=== PATIENT | female | born 1995 | race Caucasian/White ===

== ENCOUNTER 2017-10-08 21:48 | Observation (INO) ==
[2017-10-08 22:15] LABS: Bilirubin,Urine Negative (Negative); Blood,Urine Negative (Negative); Clarity,Urine Turbid (Clear); Color,Urine Yellow (Yellow); Glucose,Urine (UA) Normal (Normal); Ketones,Urine Negative (Negative); Leukocyte Esterase,Urine Large (Negative); Nitrite,Urine Negative (Negative); PH,Urine 7.5 pH Units (5.0-8.0); Protein,Urine Negative (Neg-Trace); Specific Gravity,Urine 1.018 (1.010-1.025); Urobilinogen,Urine Normal (Normal)
[2017-10-08 22:17] LABS: Bacteria,Urine Moderate per hpf (None-Few); Hyaline Casts,Urine None Seen per lpf (None-Few); Squamous Epithelial Cell,Urine Many per lpf (None-Few)
[2017-10-08 22:25] LABS: Amphetamine Screen,Urine Negative ng/mL (Cutoff=1000); Barbiturate Screen,Urine Negative ng/mL (Cutoff=200); Benzodiazepines Screen,Urine Negative ng/mL (Cutoff=200); Cannabinoid Screen,Urine Negative ng/mL (Cutoff = 50); Cocaine Screen,Urine Negative ng/mL (Cutoff= 300); Opiate Screen,Urine Negative ng/mL (Cutoff=300); Phencyclidine Screen,Urine Negative ng/mL (Cutoff=25)
[2017-10-08 22:38] LABS: Amorphous Sediment,Urine Moderate (Few); RBC,Urine 0-3 per hpf (0-3); WBC,Urine 15-30 per hpf (0-3)
--- NOTE | 2017-10-08 23:00 | OB/GYN Progress Note ---
Date of Encounter: 10/09/17 Time of Encounter: 22:57 - Assessment and Plan (1) 31 weeks gestation of Current Visit: Yes Status: Acute (2) Abdominal pain during in third trimester Current Visit: Yes Status: Acute Initial cervical exam , discussed plan of care with Dr. Villela, Will recheck cervix in 2 hours if no change we will discharge home to follow up with home provider. Will not give steroids at this time. Cervical exam remains unchanged. discharged home with instructions to call provider in AM and been seen in office. UA indicates UTI, macrobid Rx given. Subjective - Subjective Interval history: 31+6 weeks gestation presents to triage for labor evaluation. Patient states approximately 2 hours ago she started to have some occasional abdominal cramping that was radiating to her back. Patient states she has never had this before. Patient reports good movement earlier in the day, but none since feeling the abdominal pain, denies vaginal bleeding or leaking of fluid. Patient receives care with Dr. Torres that [facility], unable to obtain records at this time.Pt reports no concerns during care. Antepartum ROS: contractions, no loss of fluid, no vaginal bleeding, no movement normal Objective - Vital Signs Vital Signs: Intake and Output 10/08/17 10/08/17 10/08/17 07:59 15:59 23:59 Other: Weight 72.575 kg Patient Weight 10/08/17 23:59 Weight 72.575 kg - Exam FHR: auscultation normal, category 1 FHR comments: 135 baseline Abdomen: Present: normal appearance, soft, gravid Cervical dilation: 3 - Labs Labs: Abnormal lab results Urine Clarity Turbid (Clear) A 10/08/17 22:00 Ur Leukocyte Esterase Large (Negative) H 10/08/17 22:00 Urine Microscopic WBC 15-30 per hpf (0-3) H 10/08/17 22:00 Ur Squamous Epith Cells Many per lpf (None-Few) H 10/08/17 22:00 Amorphous Sediment Moderate (Few) H 10/08/17 22:00 Urine Bacteria Moderate per hpf (None-Few) H 10/08/17 22:00
== END 2017-10-09 01:30 | disposition home or self-care (01) ==
LOC: 1NENULAB
PROVIDERS: ADMIT Obstetrics & Gynecology; ATTEND Obstetrics & Gynecology

== ENCOUNTER 2017-11-30 22:17 | Inpatient (IN) ==
[2017-11-30 21:35] LABS: Amphetamine Screen,Urine Negative ng/mL (Cutoff=1000); Barbiturate Screen,Urine Negative ng/mL (Cutoff=200); Benzodiazepines Screen,Urine Negative ng/mL (Cutoff=200); Cannabinoid Screen,Urine Negative ng/mL (Cutoff = 50); Cocaine Screen,Urine Negative ng/mL (Cutoff= 300); Opiate Screen,Urine Negative ng/mL (Cutoff=300); Phencyclidine Screen,Urine Negative ng/mL (Cutoff=25)
[~2017-11-30 22:17] MED LIST: Famotidine 20 MG/2 ML VIAL IVP PRN; Naloxone 0.4 MG/ML INJ IVP PRN; Ondansetron 4 MG/2 ML VIAL IVP PRN
--- NOTE | 2017-11-30 22:23 | OB/GYN History & Physical ---
Date of Encounter: 11/30/17 Time of Encounter: 22:19 Assessment and Plan (1) 39 weeks gestation of Current visit: Yes Status: Acute Patient admitted for spontaneous labor (2) SROM (spontaneous rupture of membranes) Current visit: Yes Status: Acute admitted for delivery patient may have epidural if desires for pain control History of Present Illness Chief complaint: labor and SROM HPI: Ms. Greene is a 22 year old female at 39w1d presents to labor and delivery with complaints of contractions that started around 1800. Patient also reports leaking of fluid that started around 2000. Patient reports leaking was just a trickle. Patient reports +FM. Denies any vaginal bleeding. Patient was 3.5 cm on arrival and progressed to 8/100/0 after 1 hour. Nitrazine was equivocal, + pooling in speculum. Patient admitted for delivery. Blood type: A Negative Rubella: Immune Hep B: Nonreactive GBS: negative Past Med Surg Social Fam HX - Past Medical History Source: patient Medical history: no medical history Psychiatric history: no psych history - Past Surgical History Surgical History: no surgical history - Social History Smoking Status: Never smoker Smokeless Tobacco Status: No Alcohol use: none Drug use: none Current living situation: Home - Independent Activity Level: Independent ambulation Recent Out of Country Travel Within the Last 8 Weeks: No Exposure or Possible Exposure to Illness During Travel: No - Family History Maternal Grandmother Adopted: No Living Status: Age at : 57 Cause of : Ovarian Cancer Hx Family Cardiac Disorders: No Hx Family Respiratory Disorders: No Hx Family Cancer: Yes (ovarian cancer) Hx Family GI Disorders: No Hx Family Endocrine Disorder: Yes ("thyroid problems") Hx Family Neuromuscular Disorders: No Hx Family Neurologic Disorders: No Hx Family HEENT Disorders: No Hx Family Autoimmune Disorders: No Obstetrical History - Pregnancies : 2 Para: 0 Term: 0 : 0 Ab's: 1 Livin Medications and Allergies Vit/Iron Fumarate/FA [ Tablet] 1 tab PO DAILY 10/09/17 [History ] Famotidine [Pepcid] 1 tab PO PRN PRN 11/30/17 [History] 3 Allergy/AdvReac Type Severity Reaction Status Date / Time No Known Allergies Allergy Verified 10/09/17 01:18 Review of System OB - Constitutional Constitutional ROS IM: no fever(s), no headache(s) - Cardiovascular Cardiovascular: no chest pain, no palpitations, no rapid heart rate, no syncope - Respiratory Respiratory: no cough - Gastrointestinal Gastrointestinal: no constipation, no diarrhea, no heartburn, no nausea, no vomiting - Genitourinary Genitourinary: vaginal discharge (per HPI), no abnormal vaginal bleeding, no dysuria, no flank pain, no urinary frequency, no vaginal odor, no vaginal pruritis Exam - Constitutional Constitutional: well developed, well nourished, no acute distress, average body habitus - HEENT HEENT: Normocephaly, Mucus Membranes Moist - Neck Neck exam: full ROM, supple - Lungs Respiratory exam: CTAB - Cardiovascular Cardiovascular exam: RRR, +S1, +S2 - Abdomen Abdomen: Present: bowel sounds normal, gravid, non tender - Extremities Extremities exam: full ROM, normal capillary refill, normal inspection Deep Tendon Reflex Grade: 2+ Normal - Cervix Dilation: 8 Effacement: 100 Station: 0 - Uterus Uterus exam: Present: normal size, normal contour - Anus/Rectum Anus/Rectum: Present: normal perianal skin - Comments Comments: FHR 135 bpm moderate variability +15x15 accels no decels noted. Contractions 3- 4 min apart. CAt. 1 tracing Results All other labs normal. - VTE Reasons for not Prescribing Prophylaxis: Treatment not Indicated - Low risk for VTE
[2017-11-30] MEDS ORDERED: Ringers Solution, Lactated 1,000 ML IVC SCH (22:30)
[2017-11-30] MEDS ORDERED: Oxytocin 20 units/ LR 1000 mL 20 UNIT/1,000 ML BAG IVC ONE (22:39)
[2017-11-30 23:04] LABS: Basophils % 0.1 %; Eosinophils % 0.1 %; Hematocrit 37.5 % (35.3-44.9); Hemoglobin 12.6 g/dL (11.5-15.4); Immature Granulocytes % 0.5 % (0-4); Lymphocytes # 1.8 K/mcL (0.6-4.6); Lymphocytes % 10.1 %; Mean Corpuscular HGB Conc 33.6 g/dL (31.6-35.5); Mean Corpuscular Hemoglobin 29.9 pg (28.0-33.3); Mean Corpuscular Volume 89.1 fL (83.0-100.0); Mean Platelet Volume 11.5 fL (9.4-12.4); Monocytes # 1.1 K/mcL (0.0-1.3); Neutrophils # 14.8 K/mcL (1.6-8.9); Platelet Count 213 K/mcL (140-400); Red Blood Count 4.21 M/mcL (3.82-4.97); Red Cell Distribution Width 13.3 % (11.5-14.5); Segmented Neutrophils % 83.2 %
[2017-11-30] MEDS ORDERED: *HR* FentaNYL (PF) 100 MCG/2 ML VIAL EP ONE (23:19)
[2017-11-30] MEDS ORDERED: *HR* Ropivacaine/PF 0.2% 20 ML VIAL EP ONE (23:19)
[2017-11-30] MEDS ORDERED: *HR* FentaNYL (PF) 100 MCG/2 ML VIAL ONE (23:21)
[2017-11-30] MEDS ORDERED: Epidural Premix (fent/bupiv) 110 ML EP ONE (23:22)
[2017-11-30] MEDS ORDERED: Bupivacaine-MPF 0.5% 25 ML, FentaNYL (PF) 250 MCG in 0.9 % Sodium Chloride 80 ML EP SCH (23:30)
--- NOTE | 2017-11-30 23:45 | Anesthesia Evaluation PreOp ---
Date of Encounter: 11/30/17 Time of Encounter: 23:43 - Past History Planned Operation: amelia Cardiac History: Denies any Significant Hx Pulmonary History: Denies Any Significant HX ON CALL PHARMACY TECHNICIAN History: Denies Any Significant HX Other Medical History: GERD Anesthesia History: No Prior Anesthetic Complications : Yes Test: Positive Alcohol Use: none Drug use: none Medications and Allergies Vit/Iron Fumarate/FA [ Tablet] 1 tab PO DAILY 10/09/17 [History ] Famotidine [Pepcid] 1 tab PO PRN PRN 11/30/17 [History] 3 Allergy/AdvReac Type Severity Reaction Status Date / Time No Known Allergies Allergy Verified 10/09/17 01:18 - Meds/Allergy Pre-op Review Medications Reviewed: Yes Allergies Reviewed: Yes Beta Blockers on Current Med List: No Anesthesia Results - Labs 11/30/17 22:25 Anesthesia Exam 128/78 88 fht 133 Height: 5'3" Weight: 85 NPO (# of Hours): 2 Pain Scale: 8 Pain Scale Used: Numeric (1 - 10) - HEENT Pupil (Motor): Pupils equal Mallampati: II Teeth: Normal Oral Opening: Greater than 3 - ON CALL PHARMACY TECHNICIAN LOC: Oriented ON CALL PHARMACY TECHNICIAN Motor: Normal RUE, Normal LUE, Normal RLE, Normal LLE, Normal Face ON CALL PHARMACY TECHNICIAN Sensory: Normal: RUE, LUE, RLE, LLE, Face - Cardiac Rhythm: Regular Murmur: None - Pulmonary Breath Sounds: bilateral Clear Respiratory Effort: Symmetrical Anesthesia Assess/Plan ASA Score: 2 Modified Coker Scale for Level of Consciousness: Cooperative, oriented, and tranquil Anesthetic Plan: Regional Autologous Blood: No Monitoring Plan: Standard Monitors Recovery Plan: Other (risks discussed questions answered, consented)
--- NOTE | 2017-11-30 23:47 | Anesthesia Procedures ---
Date of Encounter: 11/30/17 Time of Encounter: 23:45 Procedures: Anesthesia - Epidural/Spinal Patient ID/Chart reviewed: Yes Patient examined: Yes OB Eval: Gestational age: 39.3 OB Eval: : 2 OB Eval: Hx Para: 0 OB Eval: Dilated at (cm): 8 OB Eval: Contractions: Non-stressed pattern Consent Obtained: Yes Supplemental Oxygen: None/Room Air Site Prep: Aseptic Technique, Sterile prep and drape, 0.5% Chlorhexidine/Alcohol Patient position: upright Local Anesthetic: Lidocaine 1% Touhy Needle Gauge: 18 Touhy Needle Depth (cm): 6 Catheter Depth at Skin (cm): 15 Test Dose (1.5% Lido + Epi): Volume given (mls): 3 Test Dose Result: Negative Loading Dose: Fentanyl (mcg): 100 Loading Dose: Other: rop 0.2% 10cc Loading Dose Administered: Thru Touhy Needle Infusion Med: 0.125% Bupivacaine w/ 2 mcg/ml Fentanyl Infusion Rate (mls/hr): 14 (pcea 5cc q30") Catheter Secured in Place: Tegaderm Interspace Used: L2-L3 Loss of Resistance (MAYRA): Yes Blood: No CSF: No Paresthesia: No Procedure: aseptic, shalini well, VSS, effective Vitals + FHT's: 128/76 88 fht 144
--- NOTE | 2017-12-01 04:29 | OB/GYN Procedure Note ---
Delivery - Delivery Date: 12/01/17 Provider: Margaret Damico Intrapartum events: none Delivery induction: none Delivery augmentation: rupture of membranes (forebag) Delivery monitor: external FHT, external uterine Anesthesia: epidural Quantitated Blood Loss: 200 - Infant (s) A Infant Delivery Date: 12/01/17 Infant Delivery Time: 03:58 Presentation: vertex Position: JESUS MANUEL Route of delivery: Gender: Male Viability: Viable Pounds: 7 Ounces: 10 Weight Gram: 3465 kg at 1 minute: 9 at 5 mins: 9 Shoulder Dystocia: not encountered Specimens collected: cord blood Placenta: spontaneous, uterine exploration Cord: 3 umbilical vessels - Repair Episiotomy: none Laceration Description: None - Complications Delivery complications: none - Disposition Mom disposition: stable in LDR [place] disposition: stable in LDR - Comments Comments: Called to LDR patient was having late decels. Patent was complete with a forebag. The forebag was ruptured, O2 mask applied to patient. Lates resolved. Patient was placed in stirrups and prepped for delivery. Under maternal effort patient spontaneously delivered a viable male infant over an intact perineum. No nuchal cord, shoulder dystocia or meconium was encountered. Cord was clamped and cut after pulsation ceased. Cord blood was collected. Placenta delivered spontaneously and intact. Pericare provided. All counts correct. Both mother and infant stable in LDR for 2 hour recovery.
[2017-12-01] MEDS ORDERED: Oxytocin 20 units/ LR 1000 mL 20 UNIT/1,000 ML BAG IVC ONE (05:30)
[2017-12-01] MEDS ORDERED: Benzocaine/Menthol 56 GM AEROSOL SPRAY TP PRN (06:34)
[2017-12-01] MEDS ORDERED: Rho Immune Globulin 1,500 UNIT SYRINGE IM PRN (06:34)
[2017-12-01] MEDS ORDERED: Measles/Mumps/Rubella Vacc 0.5 ML VIAL SQ PRN (06:34)
[2017-12-01] MEDS ORDERED: Ibuprofen 600 MG TABLET PO PRN (06:34)
[2017-12-01] MEDS ORDERED: Acetaminophen 325 MG TABLET PO PRN (06:34)
[2017-12-01] MEDS ORDERED: Oxytocin 20 units/ LR 1000 mL 20 UNIT/1,000 ML BAG IVC SCH (06:34)
[2017-12-01] MEDS ORDERED: Lanolin 7 G OINT...G. TP PRN (06:34)
[2017-12-01] MEDS: Prenatal Vit/FA 1 EACH TABLET PO SCH (09:00)
[2017-12-02] MEDS: Prenatal Vit/FA 1 EACH TABLET PO SCH (08:23)
[2017-12-02 09:05] VITALS: BP 122/75
--- NOTE | 2017-12-02 11:22 | Discharge Summary ---
Date of Encounter: 12/02/17 Time of Encounter: 11:19 - Discharge Diagnosis (1) Vaginal delivery Priority: Primary Status: Acute Comments: Pain well controlled with by mouth pain meds Tolerating regular diet Voiding independently Passing flatus, and has had BM Lochia light Ambulating independently Discharge home today (2) Breast feeding status of mother Priority: Secondary Status: Acute Comments: resources provided - Discharge Medications Prescriptions: Ibuprofen [Motrin] 600 mg PO Q6HR PRN #30 tablet PRN Reason: Cramping Breast Pump [BREAST PUMP] 1 each .ROUTE AD #1 each Docusate [Colace] 100 mg PO BID #30 capsule Home Medications: Vit/Iron Fumarate/FA [ Tablet] 1 tab PO DAILY 10/09/17 [History ] Acetaminophen [Tylenol] 650 mg PO Q6HR PRN tablet 12/02/17 [Rx] Benzocaine/Menthol [place] [Dermoplast [place]] 1 appl TP QID PRN aerosol 12/02/17 [Rx] Breast Pump [BREAST PUMP] 1 each .ROUTE AD #1 each 12/02/17 [Rx] Docusate [Colace] 100 mg PO BID #30 capsule 12/02/17 [Rx] Ibuprofen [Motrin] 600 mg PO Q6HR PRN #30 tablet 12/02/17 [Rx] Lanolin [Lansinoh] 1 appl TP TID PRN oint...g. 12/02/17 [Rx] Allergies/Adverse Reactions: 3 Allergy/AdvReac Type Severity Reaction Status Date / Time No Known Allergies Allergy Verified 10/09/17 01:18 Data Procedures and tests throughout hospitalization: Laboratory Tests 11/30/17 11/30/17 12/01/17 21:20 22:25 05:19 WBC 17.8 H RBC 4.21 Hgb 12.6 Hct 37.5 MCV 89.1 MCH 29.9 MCHC 33.6 RDW 13.3 Plt Count 213 MPV 11.5 Immature Gran % 0.5 Seg Neutrophils % 83.2 Lymphocytes % 10.1 Monocytes % 6.0 Eosinophils % 0.1 Basophils % 0.1 Neutrophils # 14.8 H Lymphocytes # 1.8 Monocytes # 1.1 Eosinophils # 0.0 Basophils # 0.0 Urine Opiates Screen Negative Ur Barbiturates Screen Negative Ur Phencyclidine Scrn Negative Ur Amphetamines Screen Negative U Benzodiazepines Scrn Negative Urine Cocaine Screen Negative U Marijuana (THC) Screen Negative Blood Type A NEGATIVE Baby's Blood Type A RH NEGATIVE Mother's Blood Type A RH NEGATIVE Rhogam Indicated NO Labs on day of discharge: Labs from last 24 hours 12/01/17 05:19 Baby's Blood Type A RH NEGATIVE Mother's Blood Type A RH NEGATIVE Rhogam Indicated NO Date of admission: 11/30/17 22:17 Primary care physician: PCP NONE Consults: 12/01/17 06:34 Consult to Security Assurance Analyst [CONS] Routine Comment: Vaginal delivery, consult needed Discharging clinician: Marina Castillo Anticipated date of discharge: 12/02/17 - Patient Status Disposition: Home, Self-Care Condition: Good Functional capacity at discharge: independent ambulation Overall status at discharge: patient is progressing back to baseline - Discharge Instructions Follow Up With: NONE,PCP [Primary Care Provider] - Margaret Damico CNM [Non-Partnered Physician] - - Diet and Activity Activity: increase activity as tolerated Diet: regular diet Hospital Course Reason for admission: IUP at term Delivery: Episiotomy: none Laceration: none Other procedures: none complications: none Discharge diagnosis: IUP at term delivered [place] baby: male Time Attestation: Total time spent providing and/or coordinating discharge services: Time Spent: Less than 30 minutes Exam - Constitutional Vitals: Temp Pulse Resp BP Pulse Ox 97.6 F 86 16 122/75 98 12/02/17 08:35 12/02/17 08:35 12/02/17 08:35 12/02/17 08:35 12/02/17 08:35 General appearance IM: A&O X 3 - Respiratory Respiratory exam: Present: CTAB - Cardiovascular Cardiovascular exam IM: Present: RRR, +S1, +S2 - GI/Abdominal GI/Abdominal exam IM: normal bowel sounds, no peritoneal signs - Rectal Rectal exam: deferred - Uterine Tone: Firm Uterus Position: 1 Finger Below Umbilicus, Midline - Extremities Exam Extremities exam IM: Present: normal capillary refill, normal inspection, radial pulses palpable and symmetrical - Neurological Exam Neurological exam: alert, oriented X3 - Psychiatric Additional comments: Patient denies history of anxiety or depression. Signs and symptoms of depression discussed with this patient and partner and they both verbalize understanding of when to call for help.
== END 2017-12-02 13:00 | disposition home or self-care (01) | DRG 560 ==
LOC: 1NENULAB → 1NENUOBS 12-01 06:33
PROVIDERS: ADMIT Advanced Practice Midwife; ATTEND Advanced Practice Midwife

== ENCOUNTER → 2019-07-24 19:05 | Observation (INO) ==
[2019-07-24 17:05] LABS: Bilirubin,Urine Negative (Negative); Blood,Urine Negative (Negative); Clarity,Urine Cloudy (Clear); Color,Urine Yellow (Yellow); Glucose,Urine (UA) Normal (Normal); Ketones,Urine Negative (Negative); Leukocyte Esterase,Urine Moderate (Negative); Nitrite,Urine Negative (Negative); Protein,Urine Negative (Neg-Trace); Specific Gravity,Urine 1.015 (1.010-1.025); Urobilinogen,Urine Normal (Normal)
[2019-07-24 17:08] LABS: Bacteria,Urine Few per hpf (None-Few); Hyaline Casts,Urine None Seen per lpf (None-Few); RBC,Urine 0-3 per hpf (0-3); Squamous Epithelial Cell,Urine Many per lpf (None-Few); WBC,Urine 15-30 per hpf (0-3)
[2019-07-24 17:11] LABS: Amphetamine Screen,Urine Negative ng/mL (Cutoff=1000); Barbiturate Screen,Urine Negative ng/mL (Cutoff=200); Benzodiazepines Screen,Urine Negative ng/mL (Cutoff=200); Cannabinoid Screen,Urine Negative ng/mL (Cutoff = 50); Cocaine Screen,Urine Negative ng/mL (Cutoff= 300); Opiate Screen,Urine Negative ng/mL (Cutoff=300); Phencyclidine Screen,Urine Negative ng/mL (Cutoff=25)
== END | disposition home or self-care (01) ==
LOC: 1NENULAB
PROVIDERS: ADMIT Advanced Practice Midwife; ATTEND Advanced Practice Midwife

== ENCOUNTER 2019-09-17 01:08 | Inpatient (IN) ==
[~2019-09-17 01:08] MED LIST changes: +*HR* FentaNYL (PF) 100 MCG/2 ML VIAL IVP PRN; +Azithromycin 500 MG in 0.9 % Sodium Chloride 250 ML IVPB ONE; +Metoclopramide 10 MG/2 ML VIAL IVP PRN; +Penicillin G Potassium 5,000,000 UNIT in 0.9 % Sodium Chloride Mini Bag 100 ML IVPB ONE; +Ringers Solution, Lactated 1,000 ML ONE
[2019-09-17] MEDS ORDERED: Ringers Solution, Lactated 1,000 ML IVC SCH (01:15)
[2019-09-17] MEDS ORDERED: EPHEDrine 50 MG/ML VIAL IVP PRN (01:27)
[2019-09-17] MEDS ORDERED: *HR* FentaNYL (PF) 100 MCG/2 ML VIAL EP ONE (01:27)
[2019-09-17] MEDS ORDERED: Bupivacaine-MPF 0.25% 10 ML VIAL EP ONE (01:27)
[2019-09-17] MEDS ORDERED: Epidural Premix (fent/bupiv) 110 ML EP SCH (01:30)
[2019-09-17 01:34] LABS: Basophils % 0.2 %; Eosinophils # 0.1 K/mcL (0.0-0.6); Eosinophils % 0.5 %; Hematocrit 37.3 % (35.3-44.9); Hemoglobin 11.8 g/dL (11.5-15.4); Immature Granulocytes % 0.5 % (0-4); Lymphocytes # 1.9 K/mcL (0.6-4.6); Lymphocytes % 14.4 %; Mean Corpuscular HGB Conc 31.6 g/dL (31.6-35.5); Mean Corpuscular Hemoglobin 26.9 pg (28.0-33.3); Mean Platelet Volume 11.6 fL (9.4-12.4); Monocytes # 0.8 K/mcL (0.0-1.3); Monocytes % 6.2 %; Neutrophils # 10.2 K/mcL (1.6-8.9); Platelet Count 201 K/mcL (140-400); Red Blood Count 4.39 M/mcL (3.82-4.97); Red Cell Distribution Width 14.3 % (11.5-14.5); Segmented Neutrophils % 78.2 %; White Blood Count 13.1 K/mcL (4.3-11.1)
[2019-09-17] MEDS ORDERED: *HR* FentaNYL (PF) 100 MCG/2 ML VIAL ONE (02:06)
[2019-09-17] MEDS ORDERED: Bupivacaine-MPF 0.25% 10 ML VIAL ONE (02:06)
[2019-09-17] MEDS ORDERED: Oxytocin 20 units/ LR 1000 mL 20 UNIT/1,000 ML BAG IVC ONE (03:19)
[2019-09-17] MEDS ORDERED: Penicillin G Potassium 2,500,000 UNIT in 0.9 % Sodium Chloride 100 ML IVPB SCH (05:00)
[2019-09-17] MEDS ORDERED: Benzocaine/Menthol 56 GM AEROSOL SPRAY TP PRN (09:06)
[2019-09-17] MEDS ORDERED: Prenatal Vit/FA 1 EACH TABLET PO SCH (09:06)
[2019-09-17] MEDS ORDERED: Lanolin 7 G OINT...G. TP PRN (09:06)
[2019-09-17] MEDS ORDERED: Ibuprofen 600 MG TABLET PO PRN (09:06)
[2019-09-17] MEDS ORDERED: Oxytocin 20 units/ LR 1000 mL 20 UNIT/1,000 ML BAG IVC SCH (09:06)
[2019-09-17] MEDS ORDERED: Acetaminophen 325 MG TABLET PO PRN (09:06)
[2019-09-17] MEDS ORDERED: Measles/Mumps/Rubella Vacc 0.5 ML VIAL SQ PRN (09:06)
[2019-09-17] MEDS ORDERED: Rho Immune Globulin 1,500 UNIT SYRINGE IM PRN (09:06)
[2019-09-17] MEDS ORDERED: *HR* HYDROcodone/Acet 5/325 mg TABLET PO PRN (09:06)
[2019-09-18 08:03] VITALS: BP 112/76
== END 2019-09-18 14:00 | disposition home or self-care (01) | DRG 560 ==
LOC: 1NENULAB → 1NENUOBS 08:25
PROVIDERS: ADMIT Advanced Practice Midwife; ATTEND Advanced Practice Midwife

== ENCOUNTER → 2022-05-06 09:50 | Observation (INO) ==
[2022-05-06 08:32] LABS: Basophils % 0.2 %; Eosinophils # 0.2 K/mcL (0.0-0.6); Eosinophils % 1.5 %; Hematocrit 32.1 % (35.3-44.9); Hemoglobin 10.3 g/dL (11.5-15.4); Immature Granulocytes % 0.5 % (0-4); Lymphocytes # 1.8 K/mcL (0.6-4.6); Lymphocytes % 17.8 %; Mean Corpuscular HGB Conc 32.1 g/dL (31.6-35.5); Mean Corpuscular Hemoglobin 28.6 pg (28.0-33.3); Mean Corpuscular Volume 89.2 fL (83.0-100.0); Mean Platelet Volume 10.3 fL (9.4-12.4); Monocytes # 0.8 K/mcL (0.0-1.3); Monocytes % 7.4 %; Neutrophils # 7.4 K/mcL (1.6-8.9); Platelet Count 208 K/mcL (140-400); Red Cell Distribution Width 13.9 % (11.5-14.5); Segmented Neutrophils % 72.6 %; White Blood Count 10.2 K/mcL (4.3-11.1)
[2022-05-06 08:35] LABS: Protein/Creatinine Ratio,Urine 0.19 mg/mg (0.00-0.20)
[2022-05-06 08:44] LABS: Amorphous Sediment,Urine Few per hpf (None-Few); Bacteria,Urine Few per hpf (None-Few); Bilirubin,Urine Negative (Negative); Blood,Urine Negative (Negative); Clarity,Urine Turbid (Clear); Color,Urine Light-Yellow (Yellow); Glucose,Urine (UA) Normal (Normal); Ketones,Urine Negative (Negative); Leukocyte Esterase,Urine Negative (Negative); Mucus,Urine Few per lpf (None-Few); Nitrite,Urine Negative (Negative); Protein,Urine Trace mg/dL (Neg-Trace); RBC,Urine 0-3 per hpf (0-3); Specific Gravity,Urine 1.022 (1.010-1.025); Squamous Epithelial Cell,Urine Few per hpf (None-Few); Urobilinogen,Urine Normal (Normal)
[2022-05-06 08:45] LABS: Alanine Aminotransferase 8 Units/L (7-52); Aspartate Amino Transferase 12 Units/L (13-39); BUN/Creatinine Ratio 17 (6-26); Blood Urea Nitrogen 8 mg/dL (6-20); Lactate Dehydrogenase 149 Units/L (140-271); Uric Acid 3.6 mg/dL (2.3-7.6)
== END | disposition home or self-care (01) ==
LOC: 1NENULAB
PROVIDERS: ADMIT Registered Nurse; ATTEND Registered Nurse